=== PATIENT | female | born 1990 | race Caucasian/White ===

== ENCOUNTER → 2016-11-12 | Outpatient (CLI) | payer BC | LOC: MW.CHOBGYN 13:45 | PROVIDERS: ATTEND Nurse Practitioner Women's Health | DX: R53.83 Other fatigue (principal) | CPT/HCPCS: 36415; 82607; 82728; 84443; 85025 ==

== ENCOUNTER 2019-01-11 10:03 | Inpatient (IN) | payer BC ==
[2019-01-11] MEDS ORDERED: Water For Irrigation,Sterile 1,000 ML Container IRR PRN (11:39)
[2019-01-11] MEDS ORDERED: Nalbuphine 10 MG/1 ML Vial IVPUSH PRN (11:39)
[2019-01-11] MEDS ORDERED: Carboprost Tromethamine 250 MCG/1 ML Amp IM PRN (11:39)
[2019-01-11] MEDS ORDERED: Butorphanol 1 MG/ML SDV IVPUSH PRN (11:39)
[2019-01-11] MEDS ORDERED: Ondansetron 4 MG/2 ML SDV IV PRN (11:39)
[2019-01-11] MEDS ORDERED: Sodium Chloride 0.9% 2.5 ML Syringe FLUSH PRN (11:39)
[2019-01-11] MEDS ORDERED: Methylergonovine 0.2 MG/1 ML Amp IM PRN (11:39)
[2019-01-11] MEDS ORDERED: Sodium Chloride 0.9% 10 ML Syringe FLUSH PRN (11:39)
[2019-01-11] MEDS ORDERED: Sodium Chloride 0.9% 10 ML SDV IV PRN (11:39)
[2019-01-11] MEDS ORDERED: Lidocaine 1% 50 ML MDV INJECT PRN (11:39)
[2019-01-11] MEDS ORDERED: Tranexamic Acid 1,000 MG in Sodium Chloride 0.9% 100 ML IV PRN (11:39)
[2019-01-11] MEDS ORDERED: Misoprostol 200 MCG Tab PO PRN (11:39)
[2019-01-11] MEDS ORDERED: Lactated Ringers 1,000 ML IV SCH (11:45)
[2019-01-11] MEDS ORDERED: Oxytocin/0.9 % Sodium Chloride 30 UNIT/500 ML BAG IV SCH ×2 (11:45→13:45)
[2019-01-11] MEDS ORDERED: Ampicillin 2 GM in Sodium Chloride 0.9% 100 ML IV ONE (12:00)
[2019-01-11] MEDS ORDERED: Ropivacaine 0.2% 2 MG/ML 20 ML SDV ONE (15:57)
[2019-01-11] MEDS ORDERED: Ampicillin 1 GM in Sodium Chloride 0.9% 50 ML IV SCH (16:00)
[2019-01-11] MEDS ORDERED: Bisacodyl 10 MG Supp RECTAL PRN (18:20)
[2019-01-11] MEDS ORDERED: Benzocaine/Menthol 20%-0.5% Spray 78 GM Cannister TOP PRN (18:20)
[2019-01-11] MEDS ORDERED: oxyCODONE 5 MG Tab PO PRN (18:20)
[2019-01-11] MEDS ORDERED: Ibuprofen 400 MG Tab PO PRN (18:20)
[2019-01-11] MEDS ORDERED: Acetaminophen 500 MG Tab PO PRN ×2 (18:20)
[2019-01-11] MEDS ORDERED: Lanolin 100% Cream 7 GM Tube TOP PRN (18:20)
--- NOTE | 2019-01-11 18:26 | PCM.OPNOTE ---
- General Post-Op/Procedure Note Date of Surgery/Procedure: 01/11/19 Operative Procedure(s): /1st MLL repaired Findings: Viable male APGARs 9, 9 weight 3023 gm. Spontaneous delivery intact placenta with 3V cord Pre Op Diagnosis: 38 week IUP. SROM/labor. GBBS + Post-Op Diagnosis: Same Anesthesia Technique: Epidural Primary Surgeon: Aylin Gomes EBL in mLs: 300 Complications: none known Condition: Good Free Text/Narrative:: Dictation [id number]
--- NOTE | 2019-01-11 18:44 | PCM.PREANE ---
Preanesthetic Assessment - Anesthesia/Transfusion/Family Hx Anesthesia History: Prior Anesthesia Without Reaction Family History of Anesthesia Reaction: No Intubation History: Unknown - Review of Systems General: No Symptoms Pulmonary: No Symptoms Cardiovascular: No Symptoms Gastrointestinal: No Symptoms Neurological: No Symptoms Other: Reports: None - Physical Assessment Pulse: 120 O2 Sat by Pulse Oximetry: 98 Respiratory Rate: 24 Blood Pressure: 135/60 Height: 5 ft 1 in Weight: 76.204 kg ASA Class: 2 Mental Status: Alert & Oriented x3 Dentition: Reports: Normal Dentition Thyro-Mental Finger Breadths: 3 Mouth Opening Finger Breadths: 3 ROM/Head Extension: Full Lungs: Clear to Auscultation, Normal Respiratory Effort Cardiovascular: Regular Rate, Regular Rhythm - Lab Values: Laboratory Last Values WBC 9.89 K/uL (4.0-11.0) 01/11/19 11:56 RBC 4.54 M/uL (4.30-5.90) 01/11/19 11:56 Hgb 12.3 g/dL (12.0-16.0) 01/11/19 11:56 Hct 38.4 % (36.0-46.0) 01/11/19 11:56 MCV 84.6 fL (80.0-98.0) 01/11/19 11:56 MCH 27.1 pg (27.0-32.0) 01/11/19 11:56 MCHC 32.0 g/dL (31.0-37.0) 01/11/19 11:56 RDW Std Deviation 45.4 fl (28.0-62.0) 01/11/19 11:56 RDW Coeff of Anthony 15 % (11.0-15.0) 01/11/19 11:56 Plt Count 248 K/uL (150-400) 01/11/19 11:56 MPV 10.10 fL (7.40-12.00) 01/11/19 11:56 Nucleated RBC % 0.0 /100WBC 01/11/19 11:56 Nucleated RBCs # 0 K/uL 01/11/19 11:56 Cord ABG pH 7.105 (7.18-7.38) L 01/11/19 17:17 Cord ABG Base Excess -13 (-10--2) L 01/11/19 17:17 Cord VBG pH 7.231 (7.25-7.45) L 01/11/19 17:17 Cord VBG Base Excess -11 (-10--2) L 01/11/19 17:17 Blood Type A POSITIVE 01/11/19 11:56 Antibody Screen NEGATIVE 01/11/19 11:56 - Allergies Allergies/Adverse Reactions: Allergies Allergy/AdvReac Type Severity Reaction Status Date / Time No Known Allergies Allergy Verified 08/13/16 13:33 - Blood Blood Available: No Product(s) Available: None - Anesthesia Plan Pre-Op Medication Ordered: None (Verbalized understanding of procedure) PreAnesthesia Questionnaire - Past Health History Medical/Surgical History: Denies Medical/Surgical History [employer]IE[employer] History: Reports: Neurological History: Reports: Headaches, Chronic Psychiatric History: Reports: Anxiety, Depression - Infectious Disease History Infectious Disease History: Reports: Chicken Pox - Past Surgical History HEENT Surgical History: Reports: Oral Surgery - HOME MEDS Home Medications: Home Meds Acetaminophen [Tylenol Extra Strength] 1,000 mg PO DAILY PRN 01/11/19 [History] PNV95/Ferrous Fumarate/FA [ Tablet] 1 each PO DAILY 01/11/19 [History] - CURRENT (IN HOUSE) MEDS Current Meds: Current Medications Acetaminophen (Tylenol Extra Strength) 500 mg PO Q4H PRN PRN Reason: Pain Acetaminophen (Tylenol Extra Strength) 1,000 mg PO Q4H PRN PRN Reason: Pain Benzocaine/Menthol (Dermoplast Pain Relief 20%-0.5% [place]) 78 gm TOP ASDIRECTED PRN PRN Reason: Perineal Comfort Measure Bisacodyl (Dulcolax) 10 mg RECTAL ONETIME PRN PRN Reason: Constipation Carboprost Tromethamine (Hemabate Ds) 250 mcg IM ASDIRECTED PRN PRN Reason: Post Hemorrhage Docusate Sodium (Colace) 100 mg PO BID PRN PRN Reason: Constipation Emollient Ointment (Lansinoh Hpa) 0 gm TOP ASDIRECTED PRN PRN Reason: Sore Nipples Lactated Ringer's (Ringers, Lactated) 1,000 mls @ 150 mls/hr IV ASDIRECTED PARVEEN Last Admin: 01/11/19 12:09 Dose: 125 mls/hr Oxytocin/Sodium Chloride (Oxytocin 30 Unit/500 Ml-Ns) 30 unit in 500 mls @ 999 mls/hr IV TITRATE PAR[facility] Tranexamic Acid 1,000 mg/ (Sodium Chloride) 110 mls @ 660 mls/hr IV ONETIME PRN PRN Reason: Bleeding Oxytocin/Sodium Chloride (Oxytocin 30 Unit/500 Ml-Ns) 30 unit in 500 mls @ 2 mls/hr IV TITRATE [facility]; Protocol Last Infusion: 01/11/19 15:01 Dose: 4 munits/min, 4 mls/hr Ibuprofen (Motrin) 400 mg PO Q4H PRN PRN Reason: Pain Ibuprofen (Motrin) 800 mg PO Q6H PRN PRN Reason: Pain Methylergonovine Maleate (Methergine) 0.2 mg IM ASDIRECTED PRN PRN Reason: Post Hemorrhage Ondansetron HCl (Zofran) 4 mg IV Q6H PRN PRN Reason: Nausea/Vomiting Oxycodone HCl (Oxycodone) 5 mg PO Q2H PRN PRN Reason: Pain Sodium Chloride (Saline Flush) 10 ml FLUSH ASDIRECTED PRN PRN Reason: Keep Vein Open Sodium Chloride (Saline Flush) 2.5 ml FLUSH ASDIRECTED PRN PRN Reason: Keep Vein Open Sodium Chloride (Normal Saline) 10 ml IV ASDIRECTED PRN PRN Reason: IV Use Sterile Water (Sterile Water For Irrigation) 1,000 ml IRR ASDIRECTED PRN PRN Reason: delivery Bee Rankin (Tucks) 1 pad TOP ASDIRECTED PRN PRN Reason: comfort care Discontinued Medications Butorphanol Tartrate (Stadol) 1 mg IVPUSH Q1H PRN PRN Reason: Pain Ampicillin Sodium 2 gm/ Sodium (Chloride) 100 mls @ 200 mls/hr IV ONETIME ONE Stop: 01/11/19 12:29 Last Admin: 01/11/19 12:10 Dose: 200 mls/hr Ampicillin Sodium 1 gm/ Sodium (Chloride) 50 mls @ 100 mls/hr IV Q4H [facility] Last Admin: 01/11/19 16:00 Dose: 100 mls/hr Fentanyl/Bupivacaine HCl (Vyniaolk-Ethwt-Na 2 Mcg/Ml-0.125%) Confirm Administered Dose 100 mls @ as directed .ROUTE .STK-MED ONE Stop: 01/11/19 15:57 Lidocaine HCl (Xylocaine 1%) 50 ml INJECT ONETIME PRN PRN Reason: Laceration repair Misoprostol (Cytotec) 200 mcg PO ONETIME PRN PRN Reason: Post Hemorrhage Nalbuphine HCl (Nubain) 10 mg IVPUSH Q1H PRN PRN Reason: Pain (severe 7-10) Ropivacaine (Naropin 0.2%) Confirm Administered Dose 20 ml .[address] .[facility] ONE Stop: 01/11/19 15:58
--- NOTE | 2019-01-11 18:44 | PCM.POSTAN ---
POST ANESTHESIA ASSESSMENT - MENTAL STATUS Mental Status: Alert (Alert and oriented able to move legs denies any pain), Oriented - RESPIRATORY Respiratory Status: Respiratory Rate WNL, Airway Patent, O2 Saturation Stable - CARDIOVASCULAR CV Status: Pulse Rate WNL, Blood Pressure Stable - GASTROINTESTINAL GI Status: No Symptoms - POST OP HYDRATION Hydration Status: Adequate & Stable
[2019-01-11] MEDS: Witch Hazel Medicated Pads 40/Jar TOP PRN (19:32)
--- NOTE | 2019-01-11 19:51 | OR ---
SURGEON: Aylin Gomes M.D. DATE OF PROCEDURE: 01/11/2019 PREOPERATIVE DIAGNOSES: 1. A 38-week intrauterine . 2. Spontaneous rupture of membranes. 3. Group B strep positive. POSTOPERATIVE DIAGNOSES: 1. A 38-week intrauterine . 2. Spontaneous rupture of membranes. 3. Group B strep positive. PROCEDURE: Spontaneous vaginal delivery, first-degree midline laceration repaired. PRIMARY SURGEON: Aylin Gomes MD. ANESTHESIA: Epidural. ESTIMATED BLOOD LOSS: 300 mL. FINDINGS: Viable male. scores 9 at 1 minute and 9 at 5 minutes. Weight of 3023 g. Spontaneous delivery of intact placenta, 3-vessel cord. DISPOSITION: to nursery, mom in LDRP, stable. PROCEDURE IN DETAIL: Paula is a 28-year-old G2, P1, at 38 weeks' gestational age, who presents with rupture of membranes at approximately 8 a.m. She presented to Labor and Delivery shortly after 11 a.m. She was found to be spontaneously ruptured. She was found to be 4 cm, 80% effaced, -2 station. Therefore, she was admitted, routine labs drawn, IV hydration initiated. She is group B strep positive, so also initiated ampicillin prophylaxis. The patient was monitored and over the next few hours made minimal cervical change, therefore, was initiated on Pitocin augmentation, responded nicely to this. Shortly before 4 p.m. was found to be 7 cm and underwent regional anesthesia in the form of epidural. She progressed to complete, 100% effaced, at a + 2 station, began pushing efforts. She was able to push to a +4 station. Upon my arrival, the patient was placed in modified dorsal lithotomy position, was prepped and draped in the usual aseptic manner. Continued with pushing efforts. Was able to deliver 's head atraumatically spontaneously, followed by anterior shoulder, posterior shoulder, and remaining body without difficulty. The infant's oropharynx and nares were bulb suctioned. was handed off to his mother with attending nursing staff at the side. After a delay, the cord was clamped x2 and cut. The cord arterial, cord venous, cord blood samples obtained. Light pressure was applied while the placenta was delivered spontaneously intact. Vigorous fundal uterine massage was then applied while 30 units of Pitocin was delivered in 500 mL IV fluid. Upon inspection of cervix, vaginal sidewalls, and perineum, there was found to be a first-degree midline laceration. This was repaired using 3-0 Vicryl in the usual fashion. Hemostasis appeared evident. The patient tolerated the procedure well overall. Uterus remained firm. Sponge, instrument, and needle count was correct. The patient remained in LDRP, infant in nursery. IRENA / EVELIO /[id number]
[2019-01-11] MEDS: Ibuprofen 800 MG Tab PO PRN (23:03)
[2019-01-11] MEDS: Docusate Sodium 100 MG Cap PO PRN (23:03)
[2019-01-12] MEDS: Ibuprofen 800 MG Tab PO PRN ×2 (08:06→18:38)
--- NOTE | 2019-01-12 08:43 | PCM.PNPP ---
- General Info Date of Service: 01/12/19 Subjective Update: 28 yo P2 s/p PPD1 , ambulating , voiding and tolerating regular diet Functional Status: Reports: Pain Controlled, Tolerating Diet, Ambulating, Urinating - Review of Systems General: Reports: No Symptoms HEENT: Reports: No Symptoms Pulmonary: Reports: No Symptoms Cardiovascular: Reports: No Symptoms Gastrointestinal: Reports: No Symptoms Genitourinary: Reports: No Symptoms Musculoskeletal: Reports: No Symptoms Skin: Reports: No Symptoms Neurological: Reports: No Symptoms Psychiatric: Reports: No Symptoms - General Info Date of Service: 01/12/19 - Patient Data Vital Signs - Most Recent: Last Vital Signs Temp 36.9 C 01/12/19 07:16 Pulse 82 01/12/19 07:16 Resp 16 01/12/19 07:16 BP 119/58 L 01/12/19 07:16 Pulse Ox 96 01/12/19 07:16 Weight - Most Recent: 76.204 kg Lab Results - Last 24 Hours: Laboratory Results - last 24 hr 01/11/19 01/11/19 01/11/19 Range/Units 11:56 11:56 17:17 WBC 9.89 (4.0-11.0) K/uL RBC 4.54 (4.30-5.90) M/uL Hgb 12.3 (12.0-16.0) g/dL Hct 38.4 (36.0-46.0) % MCV 84.6 (80.0-98.0) fL MCH 27.1 (27.0-32.0) pg MCHC 32.0 (31.0-37.0) g/dL RDW Std Deviation 45.4 (28.0-62.0) fl RDW Coeff of Anthony 15 (11.0-15.0) % Plt Count 248 (150-400) K/uL MPV 10.10 (7.40-12.00) fL Nucleated RBC % 0.0 /100WBC Nucleated RBCs # 0 K/uL Cord ABG pH 7.105 L (7.18-7.38) Cord ABG Base Excess -13 L (-10--2) Cord VBG pH 7.231 L (7.25-7.45) Cord VBG Base Excess -11 L (-10--2) Blood Type A POSITIVE Antibody Screen NEGATIVE 01/12/19 Range/Units 06:15 WBC (4.0-11.0) K/uL RBC (4.30-5.90) M/uL Hgb 10.8 L (12.0-16.0) g/dL Hct 34.0 L (36.0-46.0) % MCV (80.0-98.0) fL MCH (27.0-32.0) pg MCHC (31.0-37.0) g/dL RDW Std Deviation (28.0-62.0) fl RDW Coeff of Anthony (11.0-15.0) % Plt Count (150-400) K/uL MPV (7.40-12.00) fL Nucleated RBC % /100WBC Nucleated RBCs # K/uL Cord ABG pH (7.18-7.38) Cord ABG Base Excess (-10--2) Cord VBG pH (7.25-7.45) Cord VBG Base Excess (-10--2) Blood Type Antibody Screen Med Orders - Current: Current Medications Acetaminophen (Tylenol Extra Strength) 500 mg PO Q4H PRN PRN Reason: Pain Acetaminophen (Tylenol Extra Strength) 1,000 mg PO Q4H PRN PRN Reason: Pain Benzocaine/Menthol (Dermoplast Pain Relief 20%-0.5% [place]) 78 gm TOP ASDIRECTED PRN PRN Reason: Perineal Comfort Measure Last Admin: 01/11/19 19:32 Dose: 1 can Bisacodyl (Dulcolax) 10 mg RECTAL ONETIME PRN PRN Reason: Constipation Carboprost Tromethamine (Hemabate Ds) 250 mcg IM ASDIRECTED PRN PRN Reason: Post Hemorrhage Docusate Sodium (Colace) 100 mg PO BID PRN PRN Reason: Constipation Last Admin: 01/11/19 23:03 Dose: 100 mg Emollient Ointment (Lansinoh Hpa) 0 gm TOP ASDIRECTED PRN PRN Reason: Sore Nipples Last Admin: 01/11/19 19:32 Dose: 7 gm Lactated Ringer's (Ringers, Lactated) 1,000 mls @ 150 mls/hr IV ASDIRECTED PARVEEN Last Admin: 01/11/19 12:09 Dose: 125 mls/hr Oxytocin/Sodium Chloride (Oxytocin 30 Unit/500 Ml-Ns) 30 unit in 500 mls @ 999 mls/hr IV TITRATE PARVE[facility] Tranexamic Acid 1,000 mg/ (Sodium Chloride) 110 mls @ 660 mls/hr IV ONETIME PRN PRN Reason: Bleeding Oxytocin/Sodium Chloride (Oxytocin 30 Unit/500 Ml-Ns) 30 unit in 500 mls @ 2 mls/hr IV TITRATE PAR[facility]; Protocol Last Infusion: 01/11/19 15:01 Dose: 4 munits/min, 4 mls/hr Ibuprofen (Motrin) 400 mg PO Q4H PRN PRN Reason: Pain Ibuprofen (Motrin) 800 mg PO Q6H PRN PRN Reason: Pain Last Admin: 01/12/19 08:06 Dose: 800 mg Methylergonovine Maleate (Methergine) 0.2 mg IM ASDIRECTED PRN PRN Reason: Post Hemorrhage Ondansetron HCl (Zofran) 4 mg IV Q6H PRN PRN Reason: Nausea/Vomiting Oxycodone HCl (Oxycodone) 5 mg PO Q2H PRN PRN Reason: Pain Sodium Chloride (Saline Flush) 10 ml FLUSH ASDIRECTED PRN PRN Reason: Keep Vein Open Sodium Chloride (Saline Flush) 2.5 ml FLUSH ASDIRECTED PRN PRN Reason: Keep Vein Open Sodium Chloride (Normal Saline) 10 ml IV ASDIRECTED PRN PRN Reason: IV Use Sterile Water (Sterile Water For Irrigation) 1,000 ml IRR ASDIRECTED PRN PRN Reason: delivery Witch Massiel (Tucks) 1 pad TOP ASDIRECTED PRN PRN Reason: comfort care Last Admin: 01/11/19 19:32 Dose: 1 tub Discontinued Medications Butorphanol Tartrate (Stadol) 1 mg IVPUSH Q1H PRN PRN Reason: Pain Ampicillin Sodium 2 gm/ Sodium (Chloride) 100 mls @ 200 mls/hr IV ONETIME ONE Stop: 01/11/19 12:29 Last Admin: 01/11/19 12:10 Dose: 200 mls/hr Ampicillin Sodium 1 gm/ Sodium (Chloride) 50 mls @ 100 mls/hr IV Q4H PARVE[facility] Last Admin: 01/11/19 16:00 Dose: 100 mls/hr Fentanyl/Bupivacaine HCl (Pqzngcaf-Zfbuj-Ik 2 Mcg/Ml-0.125%) Confirm Administered Dose 100 mls @ as directed .ROUTE .[employer]-MED ONE Stop: 01/11/19 15:57 Last Admin: 01/11/19 22:29 Dose: Not Given Lidocaine HCl (Xylocaine 1%) 50 ml INJECT ONETIME PRN PRN Reason: Laceration repair Misoprostol (Cytotec) 200 mcg PO ONETIME PRN PRN Reason: Post Hemorrhage Nalbuphine HCl (Nubain) 10 mg IVPUSH Q1H PRN PRN Reason: Pain (severe 7-10) Ropivacaine (Naropin 0.2%) Confirm Administered Dose 20 ml .ROUTE .[employer] ONE Stop: 01/11/19 15:58 Last Admin: 01/11/19 22:29 Dose: Not Given - Infant Interaction Support Person: - Recovery Exam Fundal Tone: Firm Fundal Level: 1 Fingerbreadths Below Umbilicus Fundal Placement: Midline Lochia Amount: Scant Lochia Color: Rubra/Red Perineum Description: Other (see below) Other Perinuem Description: 1st degree laceration Episiotomy/Laceration: Approximated Bladder Status: Voiding - Exam General: Alert, Oriented HEENT: Pupils Equal Neck: Supple Lungs: Clear to Auscultation Cardiovascular: Regular Rate GI/Abdominal Exam: Normal Bowel Sounds Extremities: Normal Inspection Psy/Mental Status: Alert - Problem List & Annotations (1) Vaginal delivery SNOMED Code(s): 576197636 Code(s): O80 - ENCOUNTER FOR FULL-TERM UNCOMPLICATED DELIVERY Status: Acute Current Visit: Yes - Problem List Review Problem List Initiated/Reviewed/Updated: Yes - Assessment Assessment:: 28 P2 s/p PPD 1 , stable . Patient will stay for an extra day due to GBS status and inadequate antibiotic coverage for baby - Plan Plan:: Routine care
[2019-01-12] MEDS ORDERED: Sertraline 50 MG Tab PO SCH (09:00)
--- NOTE | 2019-01-12 10:10 | PCM48HPAN ---
Post Anesthesia Note - EVALUATION WITHIN 48HRS OF ANESTHETIC Vital Signs in Normal Range: Yes Patient Participated in Evaluation: Yes Respiratory Function Stable: Yes Airway Patent: Yes Cardiovascular Function Stable: Yes Hydration Status Stable: Yes Pain Control Satisfactory: Yes Nausea and Vomiting Control Satisfactory: Yes Mental Status Recovered: Yes Pulse Rate: 82 SaO2: 96 Resp Rate: 16 Temperature: 98.5 F Blood Pressure: 119/58
[2019-01-12] MEDS: Docusate Sodium 100 MG Cap PO PRN (21:01)
[2019-01-13] MEDS: Ibuprofen 800 MG Tab PO PRN (02:00)
[2019-01-13] MEDS: Witch Hazel Medicated Pads 40/Jar TOP PRN (02:00)
--- NOTE | 2019-01-13 08:52 | PCM.PNPP ---
- General Info Date of Service: 01/13/19 Subjective Update: 28 yo P2 s/p PPD2 , ambulating , voiding and tolerating regular diet Functional Status: Reports: Pain Controlled, Tolerating Diet, Ambulating, Urinating - Review of Systems General: Reports: No Symptoms HEENT: Reports: No Symptoms Pulmonary: Reports: No Symptoms Cardiovascular: Reports: No Symptoms Gastrointestinal: Reports: No Symptoms Genitourinary: Reports: No Symptoms Musculoskeletal: Reports: No Symptoms Skin: Reports: No Symptoms Neurological: Reports: No Symptoms Psychiatric: Reports: No Symptoms - General Info Date of Service: 01/13/19 - Patient Data Vital Signs - Most Recent: Last Vital Signs Temp 36.4 C 01/13/19 04:10 Pulse 66 01/13/19 04:10 Resp 16 01/13/19 04:10 BP 115/54 L 01/13/19 04:10 Pulse Ox 96 01/13/19 04:10 Weight - Most Recent: 76.204 kg Med Orders - Current: Current Medications Acetaminophen (Tylenol Extra Strength) 500 mg PO Q4H PRN PRN Reason: Pain Acetaminophen (Tylenol Extra Strength) 1,000 mg PO Q4H PRN PRN Reason: Pain Benzocaine/Menthol (Dermoplast Pain Relief 20%-0.5% [place]) 78 gm TOP ASDIRECTED PRN PRN Reason: Perineal Comfort Measure Last Admin: 01/11/19 19:32 Dose: 1 can Bisacodyl (Dulcolax) 10 mg RECTAL ONETIME PRN PRN Reason: Constipation Carboprost Tromethamine (Hemabate Ds) 250 mcg IM ASDIRECTED PRN PRN Reason: Post Hemorrhage Docusate Sodium (Colace) 100 mg PO BID PRN PRN Reason: Constipation Last Admin: 01/12/19 21:01 Dose: 100 mg Emollient Ointment (Lansinoh Hpa) 0 gm TOP ASDIRECTED PRN PRN Reason: Sore Nipples Last Admin: 01/11/19 19:32 Dose: 7 gm Lactated Ringer's (Ringers, Lactated) 1,000 mls @ 150 mls/hr IV ASDIRECTED PARVEEN Last Admin: 01/11/19 12:09 Dose: 125 mls/hr Oxytocin/Sodium Chloride (Oxytocin 30 Unit/500 Ml-Ns) 30 unit in 500 mls @ 999 mls/hr IV TITRATE [facility] Tranexamic Acid 1,000 mg/ (Sodium Chloride) 110 mls @ 660 mls/hr IV ONETIME PRN PRN Reason: Bleeding Oxytocin/Sodium Chloride (Oxytocin 30 Unit/500 Ml-Ns) 30 unit in 500 mls @ 2 mls/hr IV TITRATE [facility]; Protocol Last Infusion: 01/11/19 15:01 Dose: 4 munits/min, 4 mls/hr Ibuprofen (Motrin) 400 mg PO Q4H PRN PRN Reason: Pain Ibuprofen (Motrin) 800 mg PO Q6H PRN PRN Reason: Pain Last Admin: 01/13/19 02:00 Dose: 800 mg Methylergonovine Maleate (Methergine) 0.2 mg IM ASDIRECTED PRN PRN Reason: Post Hemorrhage Ondansetron HCl (Zofran) 4 mg IV Q6H PRN PRN Reason: Nausea/Vomiting Oxycodone HCl (Oxycodone) 5 mg PO Q2H PRN PRN Reason: Pain Sertraline HCl (Zoloft) 50 mg PO DAILY [facility] Last Admin: 01/12/19 11:38 Dose: 50 mg Sodium Chloride (Saline Flush) 10 ml FLUSH ASDIRECTED PRN PRN Reason: Keep Vein Open Sodium Chloride (Saline Flush) 2.5 ml FLUSH ASDIRECTED PRN PRN Reason: Keep Vein Open Sodium Chloride (Normal Saline) 10 ml IV ASDIRECTED PRN PRN Reason: IV Use Sterile Water (Sterile Water For Irrigation) 1,000 ml IRR ASDIRECTED PRN PRN Reason: delivery Witch Massiel (Tucks) 1 pad TOP ASDIRECTED PRN PRN Reason: comfort care Last Admin: 01/13/19 02:00 Dose: 1 tub Discontinued Medications Butorphanol Tartrate (Stadol) 1 mg IVPUSH Q1H PRN PRN Reason: Pain Ampicillin Sodium 2 gm/ Sodium (Chloride) 100 mls @ 200 mls/hr IV ONETIME ONE Stop: 01/11/19 12:29 Last Admin: 01/11/19 12:10 Dose: 200 mls/hr Ampicillin Sodium 1 gm/ Sodium (Chloride) 50 mls @ 100 mls/hr IV Q4H [facility] Last Admin: 01/11/19 16:00 Dose: 100 mls/hr Fentanyl/Bupivacaine HCl (Cznfedxl-Kmtfr-Vd 2 Mcg/Ml-0.125%) Confirm Administered Dose 100 mls @ as directed .ROUTE .STK-MED ONE Stop: 01/11/19 15:57 Last Admin: 01/11/19 22:29 Dose: Not Given Lidocaine HCl (Xylocaine 1%) 50 ml INJECT ONETIME PRN PRN Reason: Laceration repair Misoprostol (Cytotec) 200 mcg PO ONETIME PRN PRN Reason: Post Hemorrhage Nalbuphine HCl (Nubain) 10 mg IVPUSH Q1H PRN PRN Reason: Pain (severe 7-10) Ropivacaine (Naropin 0.2%) Confirm Administered Dose 20 ml .ROUTE .STK-MED ONE Stop: 01/11/19 15:58 Last Admin: 01/11/19 22:29 Dose: Not Given - Infant Interaction Support Person: - Recovery Exam Fundal Tone: Firm Fundal Level: At Umbilicus Fundal Placement: Midline Lochia Amount: Scant Lochia Color: Rubra/Red Perineum Description: Other (see below) Other Perinuem Description: 1st degree laceration Episiotomy/Laceration: Approximated Bladder Status: Voiding - Exam General: Alert HEENT: Pupils Equal Neck: Supple Lungs: Clear to Auscultation, Normal Respiratory Effort Cardiovascular: Regular Rate, Regular Rhythm GI/Abdominal Exam: Normal Bowel Sounds Extremities: Normal Inspection Neurological: No New Focal Deficit - Problem List & Annotations (1) Vaginal delivery SNOMED Code(s): 889569610 Code(s): O80 - ENCOUNTER FOR FULL-TERM UNCOMPLICATED DELIVERY Status: Acute Current Visit: Yes - Problem List Review Problem List Initiated/Reviewed/Updated: Yes - My Orders Last 24 Hours: My Active Orders 01/12/19 09:00 Sertraline [Zoloft] 50 mg PO DAILY - Assessment Assessment:: 28 P2 s/p PPD 2 , stable . - Plan Plan:: Discharge home today
== END 2019-01-13 14:30 | disposition home or self-care (01) | DRG 560 ==
LOC: MW.OB 10:03 → MW.OBCHECK 10:03 → MW.OB 11:39 → MW.OBCHECK 11:39 → OBSVTOIN 17:17 → MW.OB 21:11
PROVIDERS: ADMIT Obstetrics & Gynecology; ATTEND Obstetrics & Gynecology
PROC: 10E0XZZ Delivery of Products of Conception, External Approach (ICD-10-PCS; principal; 2019-01-11)
PROC: 0HQ9XZZ Repair Perineum Skin, External Approach (ICD-10-PCS; 2019-01-11)
PROC: 3E0R3BZ Introduction of Anesthetic Agent into Spinal Canal, Percutaneous Approach (ICD-10-PCS; 2019-01-11)
PROC: 00HU33Z Insertion of Infusion Device into Spinal Canal, Percutaneous Approach (ICD-10-PCS; 2019-01-11)
DX: O99.824 Streptococcus B carrier state complicating childbirth (principal); Z3A.38 38 weeks gestation of pregnancy; Z37.0 Single live birth; O70.0 First degree perineal laceration during delivery
CPT/HCPCS: 36415; 59025; 59409; 82803; 85014; 85018; 85027; 86850; 86900; 86901; A9270-GY; J0290; J2590; J2795; J7030; J7050; J7120

== ENCOUNTER 2020-06-26 23:53 | Emergency (ER) | payer BC ==
--- NOTE | 2020-06-27 02:03 | EDM.PDOC ---
ED HPI GENERAL MEDICAL PROBLEM - General Chief Complaint: IMPORT EXPORT AGENT Problem Stated Complaint: MISCARRAGE Time Seen by Provider: 06/27/20 00:08 - History of Present Illness INITIAL COMMENTS - FREE TEXT/NARRATIVE: CHIEF COMPLAINT(S): Miscarriage HISTORY OF PRESENT ILLNESS: This is a 29-year-old woman G3, P2 who is approximately 12 weeks who comes to the emergency department with a chief complaint of miscarriage. The patient states that she is approximately 12 weeks and has an cell operator Dr. Flores who did confirm intrauterine at clinic. The patient states that on the first ultrasound the fetus appeared to have some swelling and was abnormal. She stated that yesterday she had started to have some cramping in her pelvic region and some spotting. She states that she called her cell operator and they were trying to get her an earlier appointment to this week for evaluation. She states that this evening she started to have some increased bleeding and that around 930 to 10:00 PM she had a gush of blood and passage of some tissue. She did place the tissue in a plastic bag. She states that she is experiencing some cramping which has improved and she states that the bleeding has slowed down. She states that she is not actively bleeding at this time. She denies any lightheadedness, chest pain, shortness of breath. She states that she called the on-call physician and she was told to take Benadryl however she did not take that. She states that given that she passed tissue she was concerned about retained products and came to the emergency department. REVIEW OF SYSTEMS: Constitutional: Denies fever, chills. Eyes: Denies eye pain Ears, Nose, Mouth, & Throat: Denies earache Cardiovascular: Denies chest pain Respiratory: Denies shortness of breath Gastrointestinal: Denies Nausea, vomiting, diarrhea, hematochezia. Genitourinary: Positive for vaginal bleeding and pelvic pain. Denies hematuria, vaginal discharge Skin:Denies a rash Neurological: Denies blurred vision Psychiatric: Denies depression PAST MEDICAL HISTORY: As per history of present illness and as reviewed below otherwise noncontributory. SURGICAL HISTORY: As per history of present illness and as reviewed below otherwise noncontributory. LMP: April 05, 2020 SOCIAL HISTORY: As per history of present illness and as reviewed below otherwise noncontributory. FAMILY HISTORY: As per history of present illness and as reviewed below otherwise noncontributory. EXAMINATION OF ORGAN SYSTEMS/BODY AREAS: Constitutional: Blood pressure is 118/54, heart rate 83, respiratory rate 17 with an oxygen saturation 98% on room air. Temperature 36.6 General: Overall well-appearing woman who is in no acute distress Psychiatric: Appropriate mood and affect. Eyes: No scleral icterus or conjunctival erythema ENMT: Moist mucous membranes. No pharyngeal erythema Cardiovascular: Regular, rate, and rythym. No gallops, murmurs, or rubs. Bilateral upper extremity pulses symmetric and intact. No peripheral edema. No JVD. Respiratory: Lungs clear to auscultation bilaterally. No wheezes, rales, or rhonchi. Gastrointestinal: Soft, non-tender, non-distended. Normoactive bowel sounds Genitourinary: No suprapubic tenderness uterine fundus was firm and located beneath the bellybutton. Bimanual examination was performed with RN barista present. There is minimal tenderness and minimal bleeding with what appeared to be a closed cervical os. Musculoskeletal: Normal range of motion. Skin: No lesions or abrasions. Neurological: Alert, GCS 15 MEDICAL DECISION MAKING AND COURSE IN THE ED WITH INTERPRETATION/REVIEW OF DIAGNOSTIC STUDIES: This is a 29-year-old woman G3, P2 who is approximately 12 weeks who comes to the emergency department with vaginal bleeding and pelvic pain after passage of tissue. At this time I do believe the patient has had a complete . The patient's vital signs are normal and has minimal bleeding on examination. I did discuss with her at this time that I would like to obtain CBC and type and screen to evaluate for need for RhoGam. I did discuss with her that I would contact her cell operator for a formal plan. She was amenable to this plan at this time. I provided the patient with Toradol IM for pain relief. Do not believe any other labs or imaging are indicated at this time Laboratory: CBC reveals a normocytic anemia with a hemoglobin of 11.9 and hematocrit of 38.2. Blood type was a positive I did contact Dr. Burns who is a partner with the patient's cell operator and she stated that they were already in the process of obtaining a appointment for tomorrow. She states that the nurse will call her. I discussed my conversation with the patient and discussed with her that she should have an appointment tomorrow. She was given contact information in the case she does not receive a call. She is to follow-up with her cell operator tomorrow. The patient was amenable to this plan. She is to return for any new or worsening symptoms such as increased vaginal bleeding. DISPOSITION: The patient was discharged home in stable condition. The patient will follow up with her cell operator tomorrow CONDITION: Fair PROCEDURES: None FINAL IMPRESSION(S)/DIAGNOSES: 1. Acute spontaneous Maikel Hoff M.D. abdominal Pain Score (Numeric/FACES): 5 - Related Data Allergies Allergy/AdvReac Type Severity Reaction Status Date / Time No Known Allergies Allergy Verified 06/27/20 00:20 Home Meds: Home Meds Acetaminophen [Tylenol Extra Strength] 1,000 mg PO DAILY PRN 01/11/19 [History] Pnv No.95/Ferrous Fum/Folic AC [ Tablet] 1 each PO DAILY 01/11/19 [History] Sertraline [Zoloft] 50 mg PO DAILY 30 Days #30 tablet 01/13/19 [Rx] Past Medical History - Past Health History Medical/Surgical History: Denies Medical/Surgical History IMPORT EXPORT AGENT History: Reports: Neurological History: Reports: Headaches, Chronic Psychiatric History: Reports: Anxiety, Depression - Infectious Disease History Infectious Disease History: Reports: Chicken Pox - Past Surgical History HEENT Surgical History: Reports: Oral Surgery Social & Family History - Family History Family Medical History: Noncontributory - Tobacco Use Tobacco Use Status *Q: Never Tobacco User - Caffeine Use Caffeine Use: Reports: Coffee, Energy Drinks, Soda - Recreational Drug Use Recreational Drug Use: No ED ROS GENERAL - Review of Systems Review Of Systems: See Below ED EXAM, GENERAL - Physical Exam Exam: See Below Course - Vital Signs Last Recorded V/S: Last Vital Signs Temp 36.1 C 06/27/20 02:10 Pulse 80 06/27/20 02:10 Resp 17 06/27/20 02:10 BP 117/61 06/27/20 02:10 Pulse Ox 97 06/27/20 02:10 - Orders/Labs/Meds Labs: Laboratory Tests 06/27/20 06/27/20 Range/Units 00:45 00:45 WBC 9.11 (4.0-11.0) K/uL RBC 4.48 (4.30-5.90) M/uL Hgb 11.9 L (12.0-16.0) g/dL Hct 38.2 (36.0-46.0) % MCV 85.3 (80.0-98.0) fL MCH 26.6 L (27.0-32.0) pg MCHC 31.2 (31.0-37.0) g/dL RDW Std Deviation 43.3 (28.0-62.0) fl RDW Coeff of Anthony 14 (11.0-15.0) % Plt Count 331 (150-400) K/uL MPV 9.50 (7.40-12.00) fL Neut % (Auto) 55.8 (48.0-80.0) % Lymph % (Auto) 33.6 (16.0-40.0) % Elbert % (Auto) 8.0 (0.0-15.0) % Eos % (Auto) 2.1 (0.0-7.0) % Baso % (Auto) 0.5 (0.0-1.5) % Neut # (Auto) 5.1 (1.4-5.7) K/uL Lymph # (Auto) 3.1 H (0.6-2.4) K/uL Elbert # (Auto) 0.7 (0.0-0.8) K/uL Eos # (Auto) 0.2 (0.0-0.7) K/uL Baso # (Auto) 0.1 (0.0-0.1) K/uL Nucleated RBC % 0.0 /100WBC Nucleated RBCs # 0 K/uL Blood Type A POSITIVE Antibody Screen NEGATIVE Departure - Departure Time of Disposition: 02:01 Disposition: Home, Self-Care 01 Condition: Fair Clinical Impression: Complete - Discharge Information *PRESCRIPTION DRUG MONITORING PROGRAM REVIEWED*: No *COPY OF PRESCRIPTION DRUG MONITORING REPORT IN PATIENT JUAN: No Instructions: Miscarriage, [id number] Referrals: Uvaldo Giordano MD [Physician] - Forms: ED Department Discharge Additional Instructions: The patient is informed of any results of their evaluation and diagnostic workup and all questions are answered. They are given discharge instructions and return precautions. The patient is stable for discharge. The patient states they understand and agree with the plan and that they will return if their symptoms get worse or if they have any new concerns. The following information is given to patients seen in the emergency department who are being discharged to home. This information is to outline your options for follow-up care. We provide all patients seen in our emergency department with a follow-up referral. The need for follow-up, as well as the timing and circumstances, are variable depending upon the specifics of your emergency department visit. If you don't have a primary care physician on staff, we will provide you with a referral. We always advise you to contact your personal physician following an emergency department visit to inform them of the circumstance of the visit and for follow-up with them and/or the need for any referrals to a consulting specialist. The emergency department will also refer you to a specialist when appropriate. This referral assures that you have the opportunity for follow-up care with a specialist. All of these measure are taken in an effort to provide you with optimal care, which includes your follow-up. Under all circumstances we always encourage you to contact your private bre gomez who remains a resource for coordinating your care. When calling for follow-up care, please make the office aware that this follow-up is from your recent emergency room visit. If for any reason you are refused follow-up, please contact the [facility] Emergency Department at and asked to speak to the emergency department charge nurse. [facility] [address] [place] [id number] [facility] [address] [place] [phone] Please follow-up with your cell operator tomorrow. They will be calling you with an appointment. Please return to the emergency department if you have worsening pain or increased bleeding. Sepsis Event Note (ED) - Evaluation Sepsis Screening Result: No Definite Risk - Focused Exam Vital Signs: Vital Signs Temp Pulse Resp BP Pulse Ox 06/27/20 02:10 36.1 C 80 17 117/61 97 06/27/20 00:15 36.6 C 83 17 118/54 L 98
== END 2020-06-27 02:10 | disposition home or self-care (01) ==
LOC: MW.ED 23:53
DX: O03.9 Complete or unspecified spontaneous abortion without complication (principal); F41.9 Anxiety disorder, unspecified; F32.9 Major depressive disorder, single episode, unspecified; Z79.899 Other long term (current) drug therapy
CPT/HCPCS: 36415; 85025; 86850; 86900; 86901; 99282; 99284

== ENCOUNTER 2022-06-19 10:29 | Emergency (ER) | payer BC | END 2022-06-19 11:42 | disposition home or self-care (01) | LOC: MW.ED 10:29 | DX: G51.0 Bell's palsy (principal) | CPT/HCPCS: 99283 ==

== ENCOUNTER 2022-07-17 06:47 | Day surgery (SDC) | payer BC ==
[~2022-07-17 06:47] MED LIST: Acetaminophen 1,000 MG in Premix Bag 1 BAG IV SCH; Albuterol 0.083% 2.5 MG/3 ML Neb Soln NEB PRN; HYDROmorphone 1 MG/ML Syringe IVPUSH PRN; Lactated Ringers 1,000 ML IV SCH; Metoclopramide 10 MG/2 ML SDV IVPUSH PRN; Morphine 2 MG/ML SYRINGE IVPUSH PRN; Naloxone 0.4 MG/ML SDV IVPUSH PRN; Ondansetron 4 MG/2 ML SDV IVPUSH PRN; Pregabalin 75 MG Cap PO SCH; cefOXitin 2 GM in Premix Bag 1 BAG IV SCH; fentaNYL 50 MCG/ML SDV IVPUSH PRN
[2022-07-17] MEDS ORDERED: Scopolamine 1.5 MG Transdermal Patch TOP ONE (07:00)
[2022-07-17] MEDS ORDERED: Sugammadex Sodium 200 MG/2 ML VIAL ONE (07:37)
[2022-07-17] MEDS ORDERED: Rocuronium Bromide 50 MG/5 ML Syringe ONE (07:37)
[2022-07-17] MEDS ORDERED: Lidocaine 2% 5 ML SDV ONE (07:37)
[2022-07-17] MEDS ORDERED: Ketorolac 30 MG/ML SDV ONE (07:37)
[2022-07-17] MEDS ORDERED: Ondansetron 4 MG/2 ML SDV ONE (07:37)
[2022-07-17] MEDS ORDERED: fentaNYL 100 MCG/2 ML SDV ONE (07:38)
[2022-07-17] MEDS ORDERED: Ropivacaine 0.5% 5 MG/ML 30 ML SDV ONE (07:38)
[2022-07-17] MEDS ORDERED: Propofol 200 MG/20 ML SDV ONE ×3 (07:38→09:30)
[2022-07-17] MEDS ORDERED: Dexamethasone 4 MG/ML 5 ML MDV ONE (07:40)
[2022-07-17] MEDS ORDERED: Dexmedetomidine 200 MCG/2 ML SDV ONE (07:40)
[2022-07-17] MEDS ORDERED: Bupivacaine 0.25% 30 ML SDV ONE (07:43)
[2022-07-17] MEDS ORDERED: Indocyanine Green 25 MG SDV ONE (08:21)
[2022-07-17] MEDS ORDERED: cefOXitin 1 GM Vial ONE (08:21)
[2022-07-17] MEDS ORDERED: Water For Injection, Sterile 20 ML ONE (08:22)
== END 2022-07-17 12:45 | disposition home or self-care (01) ==
LOC: MW.SDS 06:47
PROVIDERS: ATTEND Surgery
DX: K80.10 Calculus of gallbladder with chronic cholecystitis without obstruction (principal); N39.0 Urinary tract infection, site not specified; G47.00 Insomnia, unspecified; F41.9 Anxiety disorder, unspecified; F32.A Depression, unspecified; Z79.899 Other long term (current) drug therapy
CPT/HCPCS: 47562; 81025; A9270; J0131; J0694; J1100; J1885; J2405; J2704; J2795; J3010; J3490; J7030; J7120; 00790; 64488